=== PATIENT | male | born 1955 | race Caucasian/White ===

== ENCOUNTER 2021-03-20 12:30 | Outpatient (CLI) | payer OTHER ==
[2021-03-20 13:34] LABS: ALBUMIN 3.5 G/DL (3.4-5.0); ANION GAP 8 (8-16); BLOOD UREA NITROGEN 20 MG/DL (7-18); BUN/CREATININE RATIO 20.6 (5.4-32.0); CALCIUM 8.4 MG/DL (8.5-10.1); CHLORIDE 107 MMOL/L (99-107); CREATININE 0.97 MG/DL (0.60-1.10); GLUCOSE 113 MG/DL (70-104); SODIUM 142 MMOL/L (135-145); TOTAL CARBON DIOXIDE 26.6 MMOL/L (24-32); eGFR 78 ML/MIN
[2021-03-20 13:35] LABS: BASOPHILS % (AUTO) 0.5 % (0-1); EOSINOPHILS # (AUTO) 0.3 X10'3 (0-0.9); EOSINOPHILS % (AUTO) 3.6 % (0-6); HEMATOCRIT 50.3 % (42.0-52.0); HEMOGLOBIN 16.3 g/dl (14.0-17.9); LYMPHOCYTES % (AUTO) 26.8 % (21-51); MEAN CORPUSCULAR HEMOGLOBIN 31.2 PG (27.0-31.0); MEAN CORPUSCULAR HGB CONC 32.4 g/dL (33.0-36.5); MEAN CORPUSCULAR VOLUME 96.3 FL (78-98); MEAN PLATELET VOLUME 10.9 FL (7.4-10.4); MONOCYTES # (AUTO) 0.7 X10'3 (0-0.9); MONOCYTES % (AUTO) 9.4 % (2-12); NEUTROPHILS # (AUTO) 4.5 X10'3 (1.8-7.7); NEUTROPHILS % (AUTO) 59.7 % (42-75); PLATELET COUNT 142 X10'3 (140-440); RED BLOOD COUNT 5.22 X10'6 (4.70-6.10); RED CELL DISTRIBUTION WIDTH 14.4 % (11.5-14.5); WHITE BLOOD COUNT 7.5 X10'3 (4.5-11.0)
[2021-03-20 13:39] LABS: PARTIAL THROMBOPLASTIN TIME 27 SECONDS (22-32)
== END 2021-03-20 23:59 | disposition home or self-care (01) ==
LOC: LAB 12:30 → EDSTATUS 03-25 18:30
PROVIDERS: ATTEND Internal Medicine Interventional Cardiology
DX: Z01.810 Encounter for preprocedural cardiovascular examination (principal); Z79.01 Long term (current) use of anticoagulants
CPT/HCPCS: 36415; 80048; 85025; 85610; 85730

== ENCOUNTER 2022-12-15 11:55 | Day surgery (SDC) | payer BC, MEDICARE ==
[2022-12-11 12:11] LABS: BASOPHILS % (AUTO) 0.4 % (0-1); EOSINOPHILS # (AUTO) 0.3 X10'3 (0-0.9); EOSINOPHILS % (AUTO) 3.3 % (0-6); HEMATOCRIT 54.1 % (42.0-52.0); LYMPHOCYTES # (AUTO) 2.6 X10'3 (1.1-4.8); LYMPHOCYTES % (AUTO) 29.9 % (21-51); MEAN CORPUSCULAR HEMOGLOBIN 33.5 PG (27.0-31.0); MEAN CORPUSCULAR HGB CONC 33.6 g/dL (33.0-36.5); MEAN CORPUSCULAR VOLUME 99.8 FL (78-98); MEAN PLATELET VOLUME 10.1 FL (7.4-10.4); MONOCYTES # (AUTO) 0.6 X10'3 (0-0.9); MONOCYTES % (AUTO) 7.2 % (2-12); NEUTROPHILS # (AUTO) 5.2 X10'3 (1.8-7.7); NEUTROPHILS % (AUTO) 59.2 % (42-75); PLATELET COUNT 141 X10'3 (140-440); RED BLOOD COUNT 5.43 X10'6 (4.70-6.10); RED CELL DISTRIBUTION WIDTH 12.5 % (11.5-14.5); WHITE BLOOD COUNT 8.7 X10'3 (4.5-11.0)
[2022-12-11 12:20] LABS: HEMOGLOBIN 18.2 g/dl (14.0-17.9)
[2022-12-11 12:21] LABS: APTT 28 SECONDS (22-32)
[2022-12-11 12:29] LABS: ANION GAP 9 (8-16); BLOOD UREA NITROGEN 16 MG/DL (7-18); BUN/CREATININE RATIO 14.2 (10.0-20.0); CHLORIDE 104 MMOL/L (99-107); CHOL/HDL RATIO 3.8 (0.00-4.99); CHOLESTEROL 192 MG/DL (0-200); CREATININE 1.13 MG/DL (0.60-1.10); GLUCOSE 117 MG/DL (70-104); HDL CHOLESTEROL 51 MG/DL (35-60); LDL CHOLESTEROL 121 MG/DL (50-100); POTASSIUM 4.5 MMOL/L (3.5-5.1); SODIUM 142 MMOL/L (135-145); TOTAL CARBON DIOXIDE 29.3 MMOL/L (24-32); TRIGLYCERIDES 136 MG/DL (20-135); eGFR 65 ML/MIN
[~2022-12-15] VITALS: Ht 170.2 cm; Wt 88.5 kg
[2022-12-15] VITALS (9 sets, daily range): BP systolic 98–129; BP diastolic 59–115
[2022-12-15] MEDS ORDERED: LORazepam 0.5 MG tablet PO PRN (12:15)
[2022-12-15] MEDS ORDERED: normal saline 1,000 ML IV SCH (12:15)
[2022-12-15] MEDS ORDERED: diphenhydrAMINE 25mg capsule PO PRN (12:15)
[2022-12-15] MEDS ORDERED: SPIR25TA5 PO (13:51)
[2022-12-15] MEDS ORDERED: SACU1TAB7 PO (13:51)
[2022-12-15] MEDS ORDERED: BISO5TAB29 PO (13:51)
[2022-12-15] MEDS ORDERED: EMPA10TA PO (13:51)
[2022-12-15] MEDS ORDERED: verapamil 2.5 mg/ml inj IV ONE (14:12)
[2022-12-15] MEDS ORDERED: LIDOcaine 1% (10mg/ml) 2ml vial ONE (14:12)
[2022-12-15] MEDS ORDERED: iohexol 350MG/ML 100ml bottle IV ONE (14:13)
[2022-12-15] MEDS ORDERED: fentaNYL/PF 50MCG/1 ML 2ML syringe ONE (14:13)
[2022-12-15] MEDS ORDERED: heparin 1,000unit/ml 10ml vial 10 ML ONE (14:13)
[2022-12-15] MEDS ORDERED: nitroGLYCERIN-Tridil 50MG/D5W 250 ML IV ONE (14:13)
[2022-12-15] MEDS ORDERED: midazolam 1 mg/ML 2ml injection ONE (14:13)
[2022-12-15] MEDS ORDERED: proCHLORperazine 10 MG/2 ml inj ONE (14:42)
[2022-12-15] MEDS ORDERED: iohexol 350 MG/ML 50ML vial IV ONE (14:56)
[2022-12-15] MEDS ORDERED: HYDROcodone/acetaminophen 10/325mg tab PO PRN (15:45)
[2022-12-15] MEDS ORDERED: HYDROcodone/acetaminophen 5mg/325mg tablet PO PRN (15:45)
[2022-12-15] MEDS ORDERED: proCHLORperazine 10 MG/2 ml inj IV PRN (15:45)
[2022-12-15] MEDS ORDERED: OXAZEpam 15mg capsule PO PRN (15:45)
[2022-12-15] MEDS ORDERED: ondansetron/PF 4mg/2ml inj IV PRN (15:45)
== END 2022-12-15 18:10 | disposition home or self-care (01) ==
LOC: SSTAY O 11:55
PROVIDERS: ATTEND Student in an Organized Health Care Education/Training Program
DX: I42.0 Dilated cardiomyopathy (principal); I25.10 Atherosclerotic heart disease of native coronary artery without angina pectoris; I11.0 Hypertensive heart disease with heart failure; I50.9 Heart failure, unspecified; E78.5 Hyperlipidemia, unspecified; M10.9 Gout, unspecified; F41.8 Other specified anxiety disorders; M48.061 Spinal stenosis, lumbar region without neurogenic claudication; Z79.899 Other long term (current) drug therapy
CPT/HCPCS: 36415; 80048; 80061; 85025; 85610; 85730; 93005; 93458; 99152; A6258; J0780; J1644; J2250; J3010; J3490; J7030; Q0163; Q9967; 99153; A6402; C1894

== ENCOUNTER 2023-01-28 08:51 | Inpatient (IN) | payer BC, MEDICARE ==
[2023-01-27 13:51] LABS: ABG BASE EXCESS 0.2 mmol/L (-2.0-2.0); ABG HCO3 22.8 mmol/L (22.0-26.0); ABG OXYGEN SATURATION 95.7 % (94-97); ABG PCO2 (T) 32.7 mmHg (35.0-48.0); ABG PH (T) 7.462 (7.340-7.440); ALLEN'S TEST POSITIVE; FCOHb 0.3 % (0.0-3.9); FHHb 4.3 % (0.0-5.0); FMetHb 0.4 % (0.0-1.5); MODE ROOM AIR; TOTAL HEMOGLOBIN 19.2 G/dl (14.0-17.9)
[2023-01-27 14:41] LABS: BILIRUBIN,URINE NEGATIVE (Neg); CLARITY,URINE CLEAR (Clear); COLOR,URINE YELLOW (Yellow); GLUCOSE, URINE 500 mg/dl (Neg); KETONES,URINE NEGATIVE (Neg); LEUKOCYTE ESTERASE ,URINE NEGATIVE (Neg); NITRITES, URINE NEGATIVE (Neg); OCCULT BLOOD,URINE NEGATIVE (Neg); PROTEIN,URINE NEGATIVE (Neg); UA COLLECTION TYPE VOIDED; UROBILINOGEN,URINE 0.2 E.U/dL (0.2-1.0)
[2023-01-27 14:47] LABS: BASOPHILS % (AUTO) 0.1 % (0-1); EOSINOPHILS # (AUTO) 0.1 X10'3 (0-0.9); EOSINOPHILS % (AUTO) 1.1 % (0-6); LYMPHOCYTES # (AUTO) 1.2 X10'3 (1.1-4.8); LYMPHOCYTES % (AUTO) 13.6 % (21-51); MEAN CORPUSCULAR HEMOGLOBIN 34.2 PG (27.0-31.0); MEAN CORPUSCULAR HGB CONC 34.3 g/dL (33.0-36.5); MEAN CORPUSCULAR VOLUME 99.9 FL (78-98); MEAN PLATELET VOLUME 9.7 FL (7.4-10.4); MONOCYTES # (AUTO) 0.6 X10'3 (0-0.9); MONOCYTES % (AUTO) 7.3 % (2-12); NEUTROPHILS # (AUTO) 6.8 X10'3 (1.8-7.7); NEUTROPHILS % (AUTO) 77.9 % (42-75); PRE OP HEMATOCRIT 51.5 % (42.0-52.0); PRE OP HEMOGLOBIN 17.7 g/dL (14.0-17.9); PRE OP PLATELET COUNT 146 X10'3 (140-440); PRE OP WHITE BLOOD COUNT 8.7 10'3 (4.8-10.8); RED BLOOD COUNT 5.16 X10'6 (4.70-6.10); RED CELL DISTRIBUTION WIDTH 13.4 % (11.5-14.5)
[2023-01-27 15:03] LABS: ALBUMIN/GLOBULIN RATIO 1.2 (1.1-1.5); ALKALINE PHOSPHATASE 71 IU/L (46-116); BLOOD UREA NITROGEN 20 MG/DL (7-18); BUN/CREATININE RATIO 23.8 (10.0-20.0); CALCIUM 9.3 MG/DL (8.5-10.1); CHLORIDE 104 MMOL/L (99-107); CREATININE 0.84 MG/DL (0.60-1.10); PRE OP ALT 49 U/L (30-65); PRE OP ANION GAP 9 (8-16); PRE OP AST 38 U/L (10-37); PRE OP BILIRUB, TOTAL 1.9 MG/DL (0.0-1.0); PRE OP GLUCOSE 125 MG/DL (70-104); PRE OP POTASSIUM 3.9 MMOL/L (3.4-5.1); PRE OP SODIUM 138 MMOL/L (135-145); TOTAL CARBON DIOXIDE 24.9 MMOL/L (24-32); TOTAL PROTEIN 7.3 G/DL (6.4-8.2); eCRCL 89 ML/MIN; eGFR > 90 ML/MIN
[2023-01-27 15:19] LABS: HEMOGLOBIN A1C 5.4 % (4.5-6.2)
[2023-01-27 15:27] LABS: PRE OP PROTIME 10.6 SECONDS (9.0-12.0)
[2023-01-28] VITALS (11 sets, daily range): BP systolic 85–119; BP diastolic 52–77; PULSE 55–97; RESP 16–20; TEMP 98.3; O2SAT 96–98
[~2023-01-28] VITALS: Ht 177.8 cm; Wt 86.7 kg
[2023-01-28] MEDS: metoprolol tartrate 12.5mg (1/2 tablet) PO ONE ×2 (05:30→13:04)
[~2023-01-28 08:51] MED LIST: ASPI81TA52 PO; BISO5TAB29 PO; DOCUMENT DATE & TIME OF BETA-BLOCKER PO ONE; EMPA10TA PO; Insulin Reg/NS 100units/100mL 100 ML IV SCH; LIDOcaine 2% (20 mg/ml) 5ml cardiac syringe ONE; LORazepam 2 mg/ml vial IV ONE; MAGNESIUM SULFATE 4 MEQ/ML (5gm/10ml) injection ONE; NORepinephrine 1 mg/ml inj IV ONE; ROSU40TA PO; SACU1TAB7 PO; SPIR25TA5 PO; albumin (human) 25% 100 ML IV solution IV ONE; albuterol 2.5 MG/3 ML nebule NEB PRN; aminocaproic acid 250 MG/1 ML inj. ONE; calcium chloride 100 MG/1 ML inj IV ONE; cefazolin 2gm/D5W 100mL 100 ML IV ONE; dextrose 50%-water 50ml dispensing syringe IV PRN; famotidine 20mg tablet PO ONE; heparin 1,000 units/ml 10ml inj ONE; heparin 10,000 units/1 ML INJ ONE; mannitol 12.5gm/50mL VIAL IV ONE; methylPREDNISolone sod succ 1000mg vial ONE; mupirocin 2% nasal ointment 1gm UD NS ONE; ringers solution, lacted 1,000 ML IV SCH; sodium bicarbonate (8.4%) 1 mEq/ml syringe ONE; vancomycin 1,500 MG in NS 300ml IV soln IV ONE
[2023-01-28] MEDS ORDERED: vancomycin 1,000mg inj ONE ×2 (12:21→16:56)
[2023-01-28] MEDS ORDERED: ceFAZolin 1000mg inj ONE (12:21)
[2023-01-28] MEDS ORDERED: BUPIVAcaine/PF 2.5 mg/ml (0.25%) 30ml vial ONE (12:21)
[2023-01-28] MEDS ORDERED: epiNEPHrine 1 mg/ml inj ONE (12:21)
--- NOTE | 2023-01-28 14:00 | NUR ---
PER LAINE KOCH, DO NOT GIVE 12.5 METOPROLOL D/T HR 55-57.
[2023-01-28] MEDS ORDERED: MIDAZolam 1 MG/ML 5ML VIAL ONE (14:07)
[2023-01-28] MEDS ORDERED: SUfentanil 50mcg/ml 1ml amp IV ONE (14:08)
[2023-01-28] MEDS ORDERED: propofol inj 20 ML IV ONE (14:09)
[2023-01-28] MEDS ORDERED: rocuronium 10mg/ml inj IV ONE ×2 (14:10)
[2023-01-28] MEDS ORDERED: ePHEDrine 50MG/ML INJ. ONE (14:12)
[2023-01-28] MEDS ORDERED: protamine sulf. 10mg/ml inj. IV ONE (14:12)
[2023-01-28] MEDS ORDERED: sevoflurane 250ml liquid IH ONE (14:12)
[2023-01-28 15:00] LABS: ABG BASE EXCESS -3.1 mmol/L (-2.0-2.0); ABG OXYGEN SATURATION 98.4 % (94-97); ABG PCO2 35.4 mmHg (35.0-48.0); ABG PH 7.392 (7.340-7.440); ABG PO2 113.9 mmHg (75.0-100.0); CL (ABG) 105 mmol/L (99-107); FHHb 1.6 % (0.0-5.0); FMetHb 0.3 % (0.0-1.5); FO2Hb 97.1 % (94-97); GLUCOSE (ABG) 102 mg/dl (70-104); IONIZED CA (ABG) 1.15 mmol/L (1.10-1.30); K (ABG) 3.8 mmol/L (3.5-5.1); TOTAL HEMOGLOBIN 16.3 G/dl (14.0-17.9)
[2023-01-28 15:51] LABS: ABG HCO3 20.9 mmol/L (22.0-26.0); ABG OXYGEN SATURATION 99.5 % (94-97); ABG PCO2 33.2 mmHg (35.0-48.0); ABG PH 7.416 (7.340-7.440); ABG PO2 431.6 mmHg (75.0-100.0); CL (ABG) 102 mmol/L (99-107); FHHb 0.5 % (0.0-5.0); FMetHb 0.3 % (0.0-1.5); FO2Hb 99.2 % (94-97); GLUCOSE (ABG) 98 mg/dl (70-104); TOTAL HEMOGLOBIN 11.3 G/dl (14.0-17.9)
[2023-01-28 16:04] LABS: ABG BASE EXCESS VENOUS 0.2 mmol/L (-2.0 - 2.0); ABG HCO3 VENOUS 25.3 mmol/L (21.0-28.0); ABG OXYGEN SATURATION VENOUS 84.1 % (75 - 99 %); ABG PH (VENOUS) 7.388 (7.310-7.450); ABG PO2 VENOUS 47.4 mmHg (25.0-35.0); CL (ABG) 103 mmol/L (99-107); FCOHb VENOUS 0.5 %; FHHb VENOUS 15.8 %; FMetHb VENOUS 0.3 % (0.0 - 0.5); FO2Hb VENOUS 83.4 %; GLUCOSE (ABG) 106 mg/dl (70-104); IONIZED CA (ABG) 0.97 mmol/L (1.10-1.30); TOTAL HEMOGLOBIN 11.6 G/dl (14.0-17.9)
[2023-01-28 16:33] LABS: ABG BASE EXCESS -4.2 mmol/L (-2.0-2.0); ABG HCO3 20.1 mmol/L (22.0-26.0); ABG OXYGEN SATURATION 99.6 % (94-97); ABG PCO2 34.2 mmHg (35.0-48.0); ABG PH 7.387 (7.340-7.440); ABG PO2 361.9 mmHg (75.0-100.0); CL (ABG) 103 mmol/L (99-107); FCOHb 0.6 % (0.0-3.9); FHHb 0.4 % (0.0-5.0); FMetHb 0.3 % (0.0-1.5); FO2Hb 98.7 % (94-97); GLUCOSE (ABG) 110 mg/dl (70-104); IONIZED CA (ABG) 1.32 mmol/L (1.10-1.30); TOTAL HEMOGLOBIN 11.9 G/dl (14.0-17.9)
[2023-01-28 16:55] LABS: ABG BASE EXCESS -2.7 mmol/L (-2.0-2.0); ABG HCO3 22.2 mmol/L (22.0-26.0); ABG OXYGEN SATURATION 83.5 % (94-97); ABG PCO2 39.1 mmHg (35.0-48.0); ABG PH 7.372 (7.340-7.440); CL (ABG) 103 mmol/L (99-107); FHHb 16.3 % (0.0-5.0); FMetHb 0.3 % (0.0-1.5); FO2Hb 82.4 % (94-97); GLUCOSE (ABG) 101 mg/dl (70-104); IONIZED CA (ABG) 1.15 mmol/L (1.10-1.30); K (ABG) 3.9 mmol/L (3.5-5.1); TOTAL HEMOGLOBIN 12.2 G/dl (14.0-17.9)
[2023-01-28] MEDS ORDERED: magnesium hydroxide 30ml (MOM) UD suspension PO PRN (17:55)
[2023-01-28] MEDS ORDERED: ondansetron/PF 4mg/2ml inj IV PRN (17:55)
[2023-01-28] MEDS ORDERED: potassium Cl 40MEQ/1/2NS 520ml 520 ML IV PRN (17:55)
[2023-01-28] MEDS ORDERED: acetaminophen 325mg tablet PO PRN ×2 (17:55)
[2023-01-28] MEDS ORDERED: mineral oil 133ml enema RC PRN (17:55)
[2023-01-28] MEDS ORDERED: HYDROcodone/acetaminophen 10/325mg tab PO PRN (17:55)
[2023-01-28] MEDS ORDERED: metoclopramide 5 mg/ml inj IV PRN (17:55)
[2023-01-28] MEDS ORDERED: magnesium 4gm in 100ml NS 100 ML IV PRN (17:55)
[2023-01-28] MEDS ORDERED: magnesium 2GM in 50ml NS 50 ML IV PRN (17:55)
[2023-01-28] MEDS ORDERED: potassium CL 10mEq/100ml bag 100 ML IV PRN (17:55)
[2023-01-28] MEDS ORDERED: sodium phosphate inj. 30 MMOL in dextrose 5%-water 250 ML IV PRN (17:55)
[2023-01-28] MEDS ORDERED: potassium Cl 40MEQ/270ML bag 270 ML IV PRN (17:55)
[2023-01-28] MEDS ORDERED: sodium phosphate inj. 15 MMOL in dextrose 5%-water 250 ML IV PRN (17:55)
[2023-01-28] MEDS ORDERED: potassium Cl 20 mEq SR tablet PO PRN (17:55)
[2023-01-28] MEDS ORDERED: dextrose 50%-water 50ml dispensing syringe IV PRN (17:55)
[2023-01-28] MEDS ORDERED: morphine 4 MG/ML inj SYRINge IV PRN (17:55)
[2023-01-28] MEDS: sodium chloride 0.45% 1,000 ML IV SCH (17:55)
[2023-01-28] MEDS ORDERED: bisacodyl 10mg suppository rectal RC PRN (17:55)
[2023-01-28] MEDS ORDERED: Neutra Phos packet PO PRN (17:55)
[2023-01-28] MEDS: NORepinephrine 8mg/ 250ml NS 250 ML IV PRN (18:00)
[2023-01-28 18:07] LABS: BASOPHILS % (AUTO) 0.2 % (0-1); EOSINOPHILS # (AUTO) 0.2 X10'3 (0-0.9); EOSINOPHILS % (AUTO) 0.9 % (0-6); HEMATOCRIT 48.4 % (42.0-52.0); HEMOGLOBIN 16.4 g/dl (14.0-17.9); LYMPHOCYTES # (AUTO) 1.8 X10'3 (1.1-4.8); LYMPHOCYTES % (AUTO) 10.5 % (21-51); MEAN CORPUSCULAR HEMOGLOBIN 33.9 PG (27.0-31.0); MEAN CORPUSCULAR HGB CONC 33.9 g/dL (33.0-36.5); MEAN PLATELET VOLUME 9.9 FL (7.4-10.4); NEUTROPHILS # (AUTO) 14.4 X10'3 (1.8-7.7); NEUTROPHILS % (AUTO) 82.4 % (42-75); PLATELET COUNT 107 X10'3 (140-440); RED BLOOD COUNT 4.84 X10'6 (4.70-6.10); RED CELL DISTRIBUTION WIDTH 13.4 % (11.5-14.5); WHITE BLOOD COUNT 17.5 X10'3 (4.5-11.0)
[2023-01-28 18:10] LABS: ABG BASE EXCESS -3.3 mmol/L (-2.0-2.0); ABG HCO3 21.1 mmol/L (22.0-26.0); ABG OXYGEN SATURATION 99.2 % (94-97); ABG PH (T) 7.383 (7.340-7.440); ABG PO2 (T) 208.2 mmHg (75.0-100.0); FCOHb 0.2 % (0.0-3.9); FHHb 0.8 % (0.0-5.0); FMetHb 0.5 % (0.0-1.5); FO2Hb 98.5 % (94-97); MODE VENT - SIMV; PATIENT TEMPERATURE 36.7; PEEP 5 cm H2O; RESPIRATORY RATE 12 b/min; TIDAL VOLUME 500 mL
--- NOTE | 2023-01-28 18:17 | NUR ---
Pt. to room from [facility] at approx 1745. Hooked up to monitor. CXR obtained and reviewed by anesthesiologist. Vamp applied to arterial line and labs drawn. CO/CI obtained and noted by anesthesiologist. Chest tubes to wall suction. ABG drawn and reviewed. EKG being obtained now. BG WNL. VSS. Foam dressing applied to sacrum, wrist restraints applied. FI02 decreased to 60%. NOC KARLA Judge at bedside to assume care.
[2023-01-28 18:26] LABS: ALANINE AMINOTRANSFERASE 35 U/L (12-78); ALBUMIN/GLOBULIN RATIO 1.4 (1.1-1.5); ALKALINE PHOSPHATASE 39 IU/L (46-116); ANION GAP 17 (8-16); ASPARTATE AMINO TRANSFERASE 41 U/L (10-37); BILIRUBIN,TOTAL 1.7 MG/DL (0.1-1.0); BLOOD UREA NITROGEN 16 MG/DL (7-18); CALCIUM 8.9 MG/DL (8.5-10.1); CHLORIDE 105 MMOL/L (99-107); GLUCOSE 119 MG/DL (70-104); MAGNESIUM 2.6 MG/DL (1.5-2.4); PHOSPHORUS 3.2 MG/DL (2.3-4.5); SODIUM 144 MMOL/L (135-145); TOTAL CARBON DIOXIDE 21.9 MMOL/L (24-32); TOTAL PROTEIN 5.2 G/DL (6.4-8.2); eCRCL 94 ML/MIN; eGFR > 90 ML/MIN
--- NOTE | 2023-01-28 18:30 | NUR ---
Patient in room CICU 2014. I have received report from Paty ACOSTA and had the opportunity to ask questions and assume patient care. Monitor known to have hyperdynamic cardiac outputs, surgeon aware, told to half the calculated numbers and use as a trend.
[2023-01-28] MEDS ORDERED: niCARDipine-NS 40mg/200ml IVPB 200 ML IV PRN (18:34)
[2023-01-28] MEDS: albumin (Human) 5% 250ml 250 ML IV PRN ×3 (18:34→22:28)
[2023-01-28] MEDS ORDERED: nitroGLYCERIN-Tridil 50MG/D5W 250 ML IV SCH (18:36)
[2023-01-28 19:05] LABS: APTT 28 SECONDS (22-32); INR 1.2 INR; PROTHROMBIN TIME 12.4 SECONDS (9.0-12.0)
[2023-01-28] MEDS: potassium Cl 20mEq/100mL bag 100 ML IV PRN ×2 (19:10→20:25)
[2023-01-28] MEDS: sennosides/docusate sodium tablet PO SCH (20:00)
[2023-01-28] MEDS: atorvastatin 10mg tablet PO SCH (20:25)
[2023-01-28] MEDS: mupirocin 2% nasal ointment 1gm UD NS SCH (20:26)
--- NOTE | 2023-01-28 20:50 | NUR ---
Arterial line dampened, using cuff pressures now.
[2023-01-28] MEDS: vancomycin/NS 1 GM ADD-VANTAGE 250 ML IV SCH (20:54)
[2023-01-28] MEDS: morphine 2 MG/ML inj. syringe IV PRN (21:56)
--- NOTE | 2023-01-28 23:20 | NUR ---
Pt with BP drop after HR dropped into 50s during a coughing fit. Backup pacer turned on at rate of 80bpm with 100%capture. BP increased with increased HR. Pt awake, Vent on SBT mode.
[2023-01-28] MEDS: ceFAZolin/D5W- 1GM premix 50 ML IV SCH (23:41)
--- NOTE | 2023-01-28 23:41 | NUR ---
Pacemaker back on standby mode.
[2023-01-28 23:43] LABS: ABG BASE EXCESS -11.8 mmol/L (-2.0-2.0); ABG HCO3 12.6 mmol/L (22.0-26.0); ABG OXYGEN SATURATION 97.6 % (94-97); ABG PCO2 (T) 25.9 mmHg (35.0-48.0); ABG PH (T) 7.305 (7.340-7.440); ABG PO2 (T) 109.4 mmHg (75.0-100.0); FCOHb 0.4 % (0.0-3.9); FHHb 2.4 % (0.0-5.0); FMetHb 0.4 % (0.0-1.5); FO2Hb 96.8 % (94-97); MODE VENT - CPAP; PATIENT TEMPERATURE 37.3; TOTAL HEMOGLOBIN 14.7 G/dl (14.0-17.9)
[2023-01-28] MEDS ORDERED: sodium bicarbonate (8.4%) 1 mEq/ml syringe IV ONE (23:55)
[2023-01-28] MEDS ORDERED: albumin (Human) 5% 250ml 250 ML IV ONE (23:55)
[2023-01-28 23:58] LABS: ANION GAP 22 (8-16); BLOOD UREA NITROGEN 18 MG/DL (7-18); BUN/CREATININE RATIO 17.6 (10.0-20.0); CHLORIDE 109 MMOL/L (99-107); CREATININE 1.02 MG/DL (0.60-1.10); GLUCOSE 167 MG/DL (70-104); POTASSIUM 5.1 MMOL/L (3.5-5.1); SODIUM 146 MMOL/L (135-145)
[2023-01-28 23:59] LABS: ALBUMIN 3.6 G/DL (3.4-5.0); CALCIUM 7.9 MG/DL (8.5-10.1); MAGNESIUM 2.3 MG/DL (1.5-2.4); eCRCL 74 ML/MIN; eGFR 73 ML/MIN
[2023-01-29] VITALS (29 sets, daily range): BP systolic 56–125; BP diastolic 45–68; PULSE 71–98; RESP 11–28; O2SAT 94–98
[2023-01-29 00:04] LABS: BASOPHILS % (AUTO) 0.1 % (0-1); EOSINOPHILS % (AUTO) 0 % (0-6); HEMATOCRIT 40.4 % (42.0-52.0); HEMOGLOBIN 13.7 g/dl (14.0-17.9); LYMPHOCYTES # (AUTO) 0.5 X10'3 (1.1-4.8); LYMPHOCYTES % (AUTO) 2.9 % (21-51); MEAN CORPUSCULAR HEMOGLOBIN 34.2 PG (27.0-31.0); MEAN CORPUSCULAR HGB CONC 33.9 g/dL (33.0-36.5); MEAN PLATELET VOLUME 10.2 FL (7.4-10.4); MONOCYTES # (AUTO) 0.5 X10'3 (0-0.9); MONOCYTES % (AUTO) 2.8 % (2-12); NEUTROPHILS # (AUTO) 17.1 X10'3 (1.8-7.7); NEUTROPHILS % (AUTO) 94.2 % (42-75); PLATELET COUNT 123 X10'3 (140-440); RED CELL DISTRIBUTION WIDTH 13.2 % (11.5-14.5); WHITE BLOOD COUNT 18.1 X10'3 (4.5-11.0)
[2023-01-29] MEDS ORDERED: sodium bicarbonate (8.4%) inj. 1 MEQ/ML ML ONE (00:16)
--- NOTE | 2023-01-29 00:32 | NUR ---
Pt passed vent weaning except pH 7.305 with HCO3 12.6. Serum CO2 15. 1 Amp Bicarb and another Albumin ordered. Pt remains on Levophed, trying to wean off.
[2023-01-29] MEDS: Insulin Reg/NS 100units/100mL 100 ML IV SCH ×2 (01:12→10:28)
[2023-01-29] MEDS: morphine 2 MG/ML inj. syringe IV PRN (01:13)
--- NOTE | 2023-01-29 01:41 | NUR ---
Pt still having low blood pressures after the 4th Albumin. Dr Morgan notified again and ordered to turn Dobutamine on at 2mcg/kg/min and continue to try to wean levophed. He also wants pt extubated despite low pH on ABG.
--- NOTE | 2023-01-29 02:13 | NUR ---
Pt extubated to 3L NC at 0201.
[2023-01-29] MEDS ORDERED: DOBUTamine-DoBUTrex 500mg/D5W 250 ML IV SCH (02:25)
[2023-01-29 02:58] LABS: BASOPHILS % (AUTO) 0.1 % (0-1); EOSINOPHILS % (AUTO) 0 % (0-6); HEMATOCRIT 37.9 % (42.0-52.0); HEMOGLOBIN 12.9 g/dl (14.0-17.9); LYMPHOCYTES # (AUTO) 0.5 X10'3 (1.1-4.8); MEAN CORPUSCULAR HEMOGLOBIN 34.3 PG (27.0-31.0); MEAN CORPUSCULAR HGB CONC 33.9 g/dL (33.0-36.5); MEAN PLATELET VOLUME 10.1 FL (7.4-10.4); MONOCYTES # (AUTO) 0.2 X10'3 (0-0.9); MONOCYTES % (AUTO) 1.8 % (2-12); NEUTROPHILS # (AUTO) 11.1 X10'3 (1.8-7.7); NEUTROPHILS % (AUTO) 94.1 % (42-75); PLATELET COUNT 99 X10'3 (140-440); RED BLOOD COUNT 3.76 X10'6 (4.70-6.10); RED CELL DISTRIBUTION WIDTH 13.3 % (11.5-14.5); WHITE BLOOD COUNT 11.8 X10'3 (4.5-11.0)
[2023-01-29 03:22] LABS: ALANINE AMINOTRANSFERASE 30 U/L (12-78); ALBUMIN 3.6 G/DL (3.4-5.0); ALKALINE PHOSPHATASE 33 IU/L (46-116); ANION GAP 23 (8-16); ASPARTATE AMINO TRANSFERASE 32 U/L (10-37); BILIRUBIN,TOTAL 1.9 MG/DL (0.1-1.0); BLOOD UREA NITROGEN 19 MG/DL (7-18); BUN/CREATININE RATIO 16.7 (10.0-20.0); CHLORIDE 110 MMOL/L (99-107); CREATININE 1.14 MG/DL (0.60-1.10); GLUCOSE 172 MG/DL (70-104); POTASSIUM 4.4 MMOL/L (3.5-5.1); SODIUM 150 MMOL/L (135-145); TOTAL CARBON DIOXIDE 17.3 MMOL/L (24-32); TOTAL PROTEIN 5.4 G/DL (6.4-8.2); eCRCL 66 ML/MIN; eGFR 64 ML/MIN
--- NOTE | 2023-01-29 04:26 | NUR ---
Pt's BP still on low side, since monitor is reading hyperdynamic FloTrac was utilized to verify CO. Results called to Dr Morgan, labs ordered. No change in IV fluids or drips at this time.
[2023-01-29 04:47] LABS: AMYLASE 675 U/L (25-115)
[2023-01-29 05:22] LABS: ABG BASE EXCESS -5.9 mmol/L (-2.0-2.0); ABG OXYGEN SATURATION 96.2 % (94-97); ABG PH (T) 7.419 (7.340-7.440); ABG PO2 (T) 86.1 mmHg (75.0-100.0); FCOHb 0.3 % (0.0-3.9); FHHb 3.8 % (0.0-5.0); FLOW 3 L/min; FMetHb 0.4 % (0.0-1.5); FO2Hb 95.5 % (94-97); MODE NASAL CANNULA; PATIENT TEMPERATURE 37.3; TOTAL HEMOGLOBIN 13.3 G/dl (14.0-17.9)
--- NOTE | 2023-01-29 05:42 | NUR ---
Lab values reported back to Dr Morgan via telephone, no additional orders at this time.
--- NOTE | 2023-01-29 06:16 | NUR ---
Problems reprioritized. Patient report given, questions answered & plan of care reviewed with Ceasar ACOSTA.
--- NOTE | 2023-01-29 06:18 | NUR ---
Patient in room CICU 2014. I have received report from Alley ACOSTA and had the opportunity to ask questions and assume patient care.
[2023-01-29] MEDS: metoprolol tartrate 12.5mg (1/2 tablet) PO SCH ×2 (06:58→20:00)
[2023-01-29] MEDS: albumin (Human) 5% 250ml 250 ML IV PRN (07:09)
[2023-01-29 07:10] LABS: MAGNESIUM 2.8 MG/DL (1.5-2.4); PHOSPHORUS 3.6 MG/DL (2.3-4.5)
[2023-01-29] MEDS ORDERED: sodium chloride 0.45% 1,000 ML in sodium chloride 0.45% 1,000 ML IV ONE (07:55)
[2023-01-29] MEDS ORDERED: ringers solution, lacted 1,000 ML IV ONE (08:00)
[2023-01-29] MEDS ORDERED: dextrose 50%-water 50ml dispensing syringe IV PRN ×2 (08:45)
[2023-01-29] MEDS ORDERED: DEXTROSE 15 GM of carb/4 tabs (each vial/BOTTLE has 4 tablets) PO PRN ×2 (08:45)
[2023-01-29] MEDS: aspirin 81mg tab.chew PO SCH (08:53)
[2023-01-29] MEDS: mupirocin 2% nasal ointment 1gm UD NS SCH ×2 (08:53→20:39)
[2023-01-29] MEDS: sennosides/docusate sodium tablet PO SCH ×2 (08:53→20:39)
[2023-01-29] MEDS: ceFAZolin/D5W- 1GM premix 50 ML IV SCH ×2 (08:54→16:22)
[2023-01-29] MEDS: insulin glargine (Lantus) pen - multi-dose SQ PRN (09:24)
[2023-01-29] MEDS: insulin Lispro (HumaLOG) vial - multi-dose SQ SCH ×2 (09:42→14:06)
[2023-01-29] MEDS: vancomycin/NS 1 GM ADD-VANTAGE 250 ML IV SCH ×2 (09:43→22:10)
[2023-01-29] MEDS: HYDROcodone/acetaminophen 10/325mg tab PO PRN ×2 (10:27→14:59)
[2023-01-29] MEDS: NORepinephrine 8mg/ 250ml NS 250 ML IV PRN (12:05)
--- NOTE | 2023-01-29 12:05 | NUR ---
Nutrition consult: Per EMR pt POD #1 s/p CABG x 3, just extubated early this morning. Pt would benefit from post CABG nutrition therapy education as appropriate. Will continue to follow. Addendum: 01/29/23 at [address] Amended: Links added.
[2023-01-29 16:20] LABS: ALBUMIN 3.4 G/DL (3.4-5.0); ANION GAP 8 (8-16); BLOOD UREA NITROGEN 21 MG/DL (7-18); BUN/CREATININE RATIO 20.4 (10.0-20.0); CALCIUM 7.5 MG/DL (8.5-10.1); CHLORIDE 107 MMOL/L (99-107); CREATININE 1.03 MG/DL (0.60-1.10); GLUCOSE 145 MG/DL (70-104); MAGNESIUM 2.4 MG/DL (1.5-2.4); POTASSIUM 4.5 MMOL/L (3.5-5.1); SODIUM 138 MMOL/L (135-145); eCRCL 73 ML/MIN; eGFR 72 ML/MIN
--- NOTE | 2023-01-29 18:23 | NUR ---
Student documentation: I have reviewed and agree with all interventions, assessments performed and documented by Nneka ACOSTA.
--- NOTE | 2023-01-29 18:23 | NUR ---
Problems reprioritized. Patient report given, questions answered & plan of care reviewed with Earnestine ACOSTA.
[2023-01-29] MEDS: atorvastatin 10mg tablet PO SCH (20:39)
[2023-01-30] VITALS (17 sets, daily range): BP systolic 90–118; BP diastolic 48–91; PULSE 62–100; RESP 12–21; TEMP 98.1; O2SAT 92–96
[2023-01-30] MEDS: ceFAZolin/D5W- 1GM premix 50 ML IV SCH ×2 (00:28→07:25)
[2023-01-30 03:05] LABS: BASOPHILS % (AUTO) 0.1 % (0-1); EOSINOPHILS % (AUTO) 0 % (0-6); HEMATOCRIT 30.8 % (42.0-52.0); HEMOGLOBIN 10.5 g/dl (14.0-17.9); LYMPHOCYTES % (AUTO) 7.6 % (21-51); MEAN CORPUSCULAR HEMOGLOBIN 34.4 PG (27.0-31.0); MEAN CORPUSCULAR HGB CONC 34.1 g/dL (33.0-36.5); MEAN CORPUSCULAR VOLUME 100.8 FL (78-98); MEAN PLATELET VOLUME 10.2 FL (7.4-10.4); MONOCYTES # (AUTO) 1.4 X10'3 (0-0.9); MONOCYTES % (AUTO) 10.7 % (2-12); NEUTROPHILS # (AUTO) 10.5 X10'3 (1.8-7.7); NEUTROPHILS % (AUTO) 81.6 % (42-75); PLATELET COUNT 81 X10'3 (140-440); RED BLOOD COUNT 3.05 X10'6 (4.70-6.10); RED CELL DISTRIBUTION WIDTH 13.3 % (11.5-14.5); WHITE BLOOD COUNT 12.8 X10'3 (4.5-11.0)
[2023-01-30 03:23] LABS: ALBUMIN 3.1 G/DL (3.4-5.0); ANION GAP 8 (8-16); BLOOD UREA NITROGEN 19 MG/DL (7-18); BUN/CREATININE RATIO 21.1 (10.0-20.0); CALCIUM 8.1 MG/DL (8.5-10.1); CHLORIDE 108 MMOL/L (99-107); GLUCOSE 133 MG/DL (70-104); POTASSIUM 4.7 MMOL/L (3.5-5.1); SODIUM 139 MMOL/L (135-145); TOTAL CARBON DIOXIDE 23.4 MMOL/L (24-32); eCRCL 83 ML/MIN; eGFR 84 ML/MIN
[2023-01-30 05:31] LABS: PLATELET ESTIMATE DECREASED
[2023-01-30 05:37] LABS: LARGE PLATELETS FEW; MICROCYTOSIS 1+
--- NOTE | 2023-01-30 06:30 | NUR ---
Patient in room CICU 2015. I have received report from Earnestine ACOSTA and had the opportunity to ask questions and assume patient care. Report give to Agustin with opportunity to ask questions and assume patient care and I will follow pts care with her.
[2023-01-30] MEDS: metoprolol tartrate 12.5mg (1/2 tablet) PO SCH (07:11)
[2023-01-30] MEDS: aspirin 81mg tab.chew PO SCH (07:24)
[2023-01-30] MEDS: sennosides/docusate sodium tablet PO SCH ×2 (07:25→20:01)
[2023-01-30] MEDS: pantoprazole 40mg Tablet.DR PO SCH (07:25)
[2023-01-30] MEDS: mupirocin 2% nasal ointment 1gm UD NS SCH (07:25)
[2023-01-30] MEDS ORDERED: insulin glargine (Lantus) pen - multi-dose SQ SCH (09:00)
--- NOTE | 2023-01-30 09:45 | NUR ---
Dr. Maynard at bedside to dc chest tube. present.
[2023-01-30] MEDS: insulin glargine (Lantus) pen - multi-dose SQ PRN (09:47)
--- NOTE | 2023-01-30 13:00 | NUR ---
OOB Pt OOB to chair for Lunch, dozing off and on. Lunch provided and pt had no c/o pain at this time
[2023-01-30] MEDS: insulin Lispro (HumaLOG) vial - multi-dose SQ SCH (14:23)
--- NOTE | 2023-01-30 14:38 | NUR ---
Patient moved from room 2014 to 2012.
[2023-01-30] MEDS: sodium chloride 0.45% 1,000 ML IV SCH ×2 (17:00→18:00)
[2023-01-30] MEDS: ascorbic acid 500mg tablet PO SCH (17:32)
--- NOTE | 2023-01-30 18:22 | NUR ---
Problems reprioritized. Patient report given, questions answered & plan of care reviewed with Renetta ACOSTA.
--- NOTE | 2023-01-30 18:30 | NUR ---
Patient in room PCU 3010. I have received report from Danny ACOSTA and had the opportunity to ask questions and assume patient care.
[2023-01-30] MEDS: ferrous sulfate 325mg tablet PO SCH (20:01)
[2023-01-30] MEDS: potassium Cl 20 mEq SR tablet PO SCH (20:01)
[2023-01-30] MEDS: furosemide 20MG tablet PO SCH (20:02)
[2023-01-30] MEDS: atorvastatin 10mg tablet PO SCH (20:02)
--- NOTE | 2023-01-30 22:57 | NUR ---
Problems reprioritized. Patient report given, questions answered & plan of care reviewed with Soheila ACOSTA. Patient transferred to 3010 all belongings.
[2023-01-30] MEDS: HYDROcodone/acetaminophen 10/325mg tab PO PRN (23:21)
--- NOTE | 2023-01-30 23:32 | NUR ---
Received patient transfer from ICU in wheelchair. Patient assisted to ambulated to bed without any difficulty. VSS, patient is afebrile. Incentive spirometer and flutter valve teaching re-inforced as well as sternal precautions. Sternal dressing dry and intact. Patient given pain medication. Resting comfortably in bed. SR up x2, bll, call shelton in reach.
[2023-01-31] VITALS (8 sets, daily range): BP systolic 97–136; BP diastolic 60–87; PULSE 60–89; RESP 16–38; TEMP 97.7–98.9; O2SAT 95–99
[2023-01-31] MEDS: potassium Cl 20 mEq SR tablet PO SCH ×2 (08:00→21:13)
[2023-01-31] MEDS ORDERED: metoprolol succinate 25mg (24-HOUR) SR. Tablet PO SCH (08:00)
[2023-01-31 08:06] LABS: BASOPHILS % (AUTO) 0.1 % (0-1); EOSINOPHILS % (AUTO) 0.2 % (0-6); HEMATOCRIT 33.3 % (42.0-52.0); HEMOGLOBIN 11.4 g/dl (14.0-17.9); LYMPHOCYTES # (AUTO) 1.3 X10'3 (1.1-4.8); LYMPHOCYTES % (AUTO) 12.2 % (21-51); MEAN CORPUSCULAR HEMOGLOBIN 34.7 PG (27.0-31.0); MEAN CORPUSCULAR HGB CONC 34.3 g/dL (33.0-36.5); MEAN CORPUSCULAR VOLUME 101.3 FL (78-98); MEAN PLATELET VOLUME 10.2 FL (7.4-10.4); MONOCYTES # (AUTO) 1.1 X10'3 (0-0.9); MONOCYTES % (AUTO) 9.9 % (2-12); NEUTROPHILS # (AUTO) 8.4 X10'3 (1.8-7.7); NEUTROPHILS % (AUTO) 77.6 % (42-75); PLATELET COUNT 84 X10'3 (140-440); RED BLOOD COUNT 3.29 X10'6 (4.70-6.10); RED CELL DISTRIBUTION WIDTH 13.4 % (11.5-14.5); WHITE BLOOD COUNT 10.9 X10'3 (4.5-11.0)
[2023-01-31] MEDS ORDERED: insulin glargine (Lantus) pen - multi-dose SQ SCH (09:00)
[2023-01-31 09:12] LABS: ALBUMIN 3.2 G/DL (3.4-5.0); ANION GAP 8 (8-16); BLOOD UREA NITROGEN 19 MG/DL (7-18); BUN/CREATININE RATIO 21.6 (10.0-20.0); CALCIUM 8.5 MG/DL (8.5-10.1); CHLORIDE 104 MMOL/L (99-107); CREATININE 0.88 MG/DL (0.60-1.10); GLUCOSE 98 MG/DL (70-104); POTASSIUM 4.5 MMOL/L (3.5-5.1); SODIUM 140 MMOL/L (135-145); TOTAL CARBON DIOXIDE 28.3 MMOL/L (24-32); eCRCL 85 ML/MIN; eGFR 87 ML/MIN
[2023-01-31] MEDS: insulin Lispro (HumaLOG) vial - multi-dose SQ SCH (09:24)
[2023-01-31] MEDS: multivitamins, therapeutics tablet PO SCH (09:27)
[2023-01-31] MEDS: ferrous sulfate 325mg tablet PO SCH ×2 (09:27→21:12)
[2023-01-31] MEDS: metoprolol succinate 25mg (24-HOUR) SR. Tablet PO SCH (09:29)
[2023-01-31] MEDS: sennosides/docusate sodium tablet PO SCH ×2 (09:29→21:12)
[2023-01-31] MEDS: furosemide 20MG tablet PO SCH ×2 (09:29→21:13)
[2023-01-31] MEDS: folic acid 1mg tablet PO SCH (09:29)
[2023-01-31] MEDS: pantoprazole 40mg Tablet.DR PO SCH (09:29)
[2023-01-31] MEDS: zinc sulfate 220mg capsule PO SCH (09:29)
[2023-01-31] MEDS: aspirin 81mg tab.chew PO SCH (09:30)
[2023-01-31] MEDS: ascorbic acid 500mg tablet PO SCH ×2 (09:30→17:59)
--- NOTE | 2023-01-31 16:59 | NUR ---
F/u 01/31: Pt seen by MILES for written/verbal high protein/heart healthy diet eds w/ RD contact information provided. Pt is agreeable to shanita LAWRENCE for wound healing; notified. MILES encouraged pt to contact dietitian's office if further nutrition questions/concerns. Rec: 1. continue NCS diet per MD 2. Shanita LAWRENCE; pending physician verification in EMR Addendum: 01/31/23 at [address] Amended: Links added.
[2023-01-31] MEDS: JUVEN Smoothie Arginine/Glut./Ca2+Bmb (Juven 19.3pkt) 240ml cup PO SCH (17:30)
[2023-01-31] MEDS: insulin glargine (Lantus) pen - multi-dose SQ SCH (21:00)
[2023-01-31] MEDS: atorvastatin 10mg tablet PO SCH (21:12)
[2023-01-31] MEDS: HYDROcodone/acetaminophen 10/325mg tab PO PRN (21:13)
[2023-02-01] VITALS (8 sets, daily range): BP systolic 114–129; BP diastolic 68–85; PULSE 84–106; RESP 15–24; TEMP 97.5–99.6; O2SAT 94–95
[2023-02-01 06:19] LABS: BASOPHILS % (AUTO) 0.1 % (0-1); EOSINOPHILS # (AUTO) 0.1 X10'3 (0-0.9); EOSINOPHILS % (AUTO) 1.2 % (0-6); HEMATOCRIT 33.9 % (42.0-52.0); HEMOGLOBIN 11.7 g/dl (14.0-17.9); LYMPHOCYTES % (AUTO) 16.4 % (21-51); MEAN CORPUSCULAR HEMOGLOBIN 34.6 PG (27.0-31.0); MEAN CORPUSCULAR HGB CONC 34.4 g/dL (33.0-36.5); MEAN CORPUSCULAR VOLUME 100.6 FL (78-98); MEAN PLATELET VOLUME 10.2 FL (7.4-10.4); MONOCYTES # (AUTO) 1.3 X10'3 (0-0.9); MONOCYTES % (AUTO) 10.6 % (2-12); NEUTROPHILS # (AUTO) 8.7 X10'3 (1.8-7.7); NEUTROPHILS % (AUTO) 71.7 % (42-75); PLATELET COUNT 108 X10'3 (140-440); RED BLOOD COUNT 3.37 X10'6 (4.70-6.10); WHITE BLOOD COUNT 12.1 X10'3 (4.5-11.0)
--- NOTE | 2023-02-01 06:25 | NUR ---
Problems reprioritized. Patient report given, questions answered & plan of care reviewed with Aguila
--- NOTE | 2023-02-01 06:26 | NUR ---
Patient in room PCU 3010. I have received report from Alexandra and had the opportunity to ask questions and assume patient care. Addendum: 02/01/23 at 0627 by Aguila West RN Amended: Links added.
[2023-02-01 06:40] LABS: ALBUMIN 3.2 G/DL (3.4-5.0); ANION GAP 6 (8-16); BLOOD UREA NITROGEN 21 MG/DL (7-18); BUN/CREATININE RATIO 22.8 (10.0-20.0); CHLORIDE 103 MMOL/L (99-107); CREATININE 0.92 MG/DL (0.60-1.10); GLUCOSE 103 MG/DL (70-104); POTASSIUM 4.2 MMOL/L (3.5-5.1); SODIUM 138 MMOL/L (135-145); TOTAL CARBON DIOXIDE 29.3 MMOL/L (24-32); eCRCL 82 ML/MIN; eGFR 82 ML/MIN
[2023-02-01] MEDS: potassium Cl 20 mEq SR tablet PO SCH ×2 (07:15→20:20)
[2023-02-01] MEDS: zinc sulfate 220mg capsule PO SCH (07:15)
[2023-02-01] MEDS: pantoprazole 40mg Tablet.DR PO SCH (07:15)
[2023-02-01] MEDS: multivitamins, therapeutics tablet PO SCH (07:15)
[2023-02-01] MEDS: ferrous sulfate 325mg tablet PO SCH ×2 (07:16→20:21)
[2023-02-01] MEDS: metoprolol succinate 25mg (24-HOUR) SR. Tablet PO SCH (07:16)
[2023-02-01] MEDS: folic acid 1mg tablet PO SCH (07:16)
[2023-02-01] MEDS: sennosides/docusate sodium tablet PO SCH ×2 (07:16→20:00)
[2023-02-01] MEDS: furosemide 20MG tablet PO SCH ×2 (07:16→08:00)
[2023-02-01] MEDS: aspirin 81mg tab.chew PO SCH (07:48)
[2023-02-01] MEDS: ascorbic acid 500mg tablet PO SCH ×2 (07:48→17:43)
[2023-02-01] MEDS ORDERED: lactulose 20gm/30ml cup PO ONE (08:05)
[2023-02-01] MEDS ORDERED: magnesium citrate 296ml oral solution PO ONE (08:05)
[2023-02-01 08:28] LABS: ACT @ 1.70 U 304 SEC (193-297); ACT @ 2.84 U 440 SEC (260-420); BASELINE ACT 133 SEC (101-148); PATIENT WEIGHT 87.0k KG
[2023-02-01 12:18] LABS: ABG PO2 49.4 mmHg (75.0-100.0)
[2023-02-01] MEDS: JUVEN Smoothie Arginine/Glut./Ca2+Bmb (Juven 19.3pkt) 240ml cup PO SCH ×2 (12:30→17:43)
--- NOTE | 2023-02-01 18:07 | NUR ---
Problems reprioritized. Patient report given, questions answered & plan of care reviewed with Maddie. Addendum: 02/01/23 at 1808 by Aguila West RN Amended: Links added.
[2023-02-01] MEDS: atorvastatin 10mg tablet PO SCH (20:20)
[2023-02-01] MEDS: HYDROcodone/acetaminophen 10/325mg tab PO PRN (20:22)
[2023-02-01] MEDS: insulin glargine (Lantus) pen - multi-dose SQ SCH (21:00)
[2023-02-02 02:00] VITALS: BP 130/81; PULSE 83; RESP 20; TEMP 98.4; O2SAT 94
--- NOTE | 2023-02-02 06:44 | NUR ---
Problems reprioritized. Patient report given, questions answered & plan of care reviewed with Malcolm
--- NOTE | 2023-02-02 06:48 | NUR ---
Patient in room PCU 3010. I have received report from Alexandra ACOSTA and had the opportunity to ask questions and assume patient care.
[2023-02-02 07:00] VITALS: BP 130/73; PULSE 85; RESP 18; TEMP 97.6; O2SAT 95
[2023-02-02 08:00] VITALS: RESP 18; O2SAT 95
[2023-02-02] MEDS: metoprolol succinate 25mg (24-HOUR) SR. Tablet PO SCH (08:43)
[2023-02-02] MEDS: potassium Cl 20 mEq SR tablet PO SCH (08:43)
[2023-02-02] MEDS: sennosides/docusate sodium tablet PO SCH (08:43)
[2023-02-02] MEDS: ferrous sulfate 325mg tablet PO SCH (08:43)
[2023-02-02] MEDS: ascorbic acid 500mg tablet PO SCH (08:43)
[2023-02-02] MEDS: aspirin 81mg tab.chew PO SCH (08:43)
[2023-02-02] MEDS: zinc sulfate 220mg capsule PO SCH (08:44)
[2023-02-02] MEDS: multivitamins, therapeutics tablet PO SCH (08:44)
[2023-02-02] MEDS: furosemide 20MG tablet PO SCH (08:44)
[2023-02-02] MEDS: folic acid 1mg tablet PO SCH (08:44)
[2023-02-02] MEDS: pantoprazole 40mg Tablet.DR PO SCH (08:49)
[2023-02-02] MEDS ORDERED: HYDR-3972 PO (08:58)
[2023-02-02] MEDS ORDERED: METO-395 PO (08:58)
[2023-02-02 09:10] LABS: BASOPHILS % (AUTO) 0.2 % (0-1); EOSINOPHILS # (AUTO) 0.6 X10'3 (0-0.9); EOSINOPHILS % (AUTO) 5.7 % (0-6); LYMPHOCYTES # (AUTO) 2.3 X10'3 (1.1-4.8); LYMPHOCYTES % (AUTO) 23.2 % (21-51); MONOCYTES # (AUTO) 1.1 X10'3 (0-0.9); MONOCYTES % (AUTO) 10.9 % (2-12); NEUTROPHILS # (AUTO) 5.9 X10'3 (1.8-7.7)
[2023-02-02 09:22] LABS: ALBUMIN 3.1 G/DL (3.4-5.0); ANION GAP 18 (8-16); CALCIUM 9.2 MG/DL (8.5-10.1); CHLORIDE 106 MMOL/L (99-107); CREATININE 0.91 MG/DL (0.60-1.10); GLUCOSE 98 MG/DL (70-104); HEMATOCRIT 34.3 % (42.0-52.0); HEMOGLOBIN 11.8 g/dl (14.0-17.9); MEAN CORPUSCULAR HEMOGLOBIN 35.2 PG (27.0-31.0); MEAN CORPUSCULAR HGB CONC 34.5 g/dL (33.0-36.5); POTASSIUM 4.6 MMOL/L (3.5-5.1); RED BLOOD COUNT 3.37 X10'6 (4.70-6.10); SODIUM 143 MMOL/L (135-145); eCRCL 82 ML/MIN; eGFR 83 ML/MIN
[2023-02-02 09:24] LABS: WHITE BLOOD COUNT 9.8 X10'3 (4.5-11.0)
[2023-02-02 09:25] LABS: PLATELET COUNT 138 X10'3 (140-440)
[2023-02-02 09:26] LABS: MEAN PLATELET VOLUME 10.3 FL (7.4-10.4)
[2023-02-02 09:31] LABS: BLOOD UREA NITROGEN 22 MG/DL (7-18); BUN/CREATININE RATIO 24.2 (10.0-20.0)
[2023-02-02 11:00] VITALS: BP 115/77; PULSE 84; RESP 23; TEMP 98.2; O2SAT 94
[2023-02-02] MEDS: JUVEN Smoothie Arginine/Glut./Ca2+Bmb (Juven 19.3pkt) 240ml cup PO SCH (13:25)
--- NOTE | 2023-02-02 15:39 | NUR ---
Pt was DC'd as per 's orders. Pt unhooked from all IV and tele. Education provided to pt and family, all questions answered. Pt will follow up with their PCP and cardiology. Pt will pick up man their meds at their pharmacy. Pt gathered all belongings and took with them. I wheeled pt down to lobby in wheelchair and they left in a private vehicle destined for home.
== END 2023-02-02 15:19 | disposition home or self-care (01) | DRG 235 ==
LOC: PAS IN 11:04 → CICU 2S 17:54 → PCU 3S 01-30 22:45
PROVIDERS: ADMIT Thoracic Surgery (Cardiothoracic Vascular Surgery); ATTEND Thoracic Surgery (Cardiothoracic Vascular Surgery)
PROC: 021109W Bypass Coronary Artery, Two Arteries from Aorta with Autologous Venous Tissue, Open Approach (ICD-10-PCS; 2023-01-28)
PROC: 06BQ4ZZ Excision of Left Saphenous Vein, Percutaneous Endoscopic Approach (ICD-10-PCS; 2023-01-28)
PROC: 5A1221Z Performance of Cardiac Output, Continuous (ICD-10-PCS; 2023-01-28)
PROC: B24BZZ4 Ultrasonography of Heart with Aorta, Transesophageal (ICD-10-PCS; 2023-01-28)
PROC: 02100Z9 Bypass Coronary Artery, One Artery from Left Internal Mammary, Open Approach (ICD-10-PCS; principal; 2023-01-28 14:12)
DX: I25.10 Atherosclerotic heart disease of native coronary artery without angina pectoris (principal); R57.1 Hypovolemic shock; E87.0 Hyperosmolality and hypernatremia; I25.3 Aneurysm of heart; E87.20 Acidosis, unspecified; I25.5 Ischemic cardiomyopathy; D69.59 Other secondary thrombocytopenia; E78.5 Hyperlipidemia, unspecified; F41.9 Anxiety disorder, unspecified; E86.1 Hypovolemia; I11.0 Hypertensive heart disease with heart failure; I48.91 Unspecified atrial fibrillation; I50.9 Heart failure, unspecified; Z82.49 Family history of ischemic heart disease and other diseases of the circulatory system; Z79.899 Other long term (current) drug therapy; I25.2 Old myocardial infarction
CPT/HCPCS: 93306; 93308; Z7506; Z7508; 36415; 36600; 71045; 71046; 80048; 80053; 81003; 82150; 82330; 82435; 82803; 82810; 82947; 82948; 83036; 83605; 83735; 84100; 84132; 84295; 85008; 85018; 85025; 85347; 85610; 85730; 86885; 86900; 86901; 86920; 87081; 93005; 93880; 93970; 94002; 94003; 94668; 94760; 97116; 97161; 97530; A4333; A4615; A4618; A6222; A6258; A6449; A7000; A7048; C1751; G0378; J0171; J0690; J1250; J1644; J1815; J2060; J2150; J2250; J2270; J2704; J2720; J2930; J3370; J3475; J3480; J3490; J7030; J7040; J7050; J7070; J7120; P9045; P9047

== ENCOUNTER 2024-01-27 08:18 | Day surgery (SDC) | payer BC, MEDICARE ==
[2024-01-21 15:04] LABS: BASOPHILS % (AUTO) 0.4 % (0-1); EOSINOPHILS # (AUTO) 0.2 X10'3 (0-0.9); LYMPHOCYTES # (AUTO) 1.5 X10'3 (1.1-4.8); LYMPHOCYTES % (AUTO) 18.9 % (21-51); MEAN CORPUSCULAR HEMOGLOBIN 35.1 PG (27.0-31.0); MEAN CORPUSCULAR HGB CONC 34.1 g/dL (33.0-36.5); MEAN CORPUSCULAR VOLUME 103.2 FL (78-98); MEAN PLATELET VOLUME 9.6 FL (7.4-10.4); MONOCYTES # (AUTO) 0.6 X10'3 (0-0.9); MONOCYTES % (AUTO) 7.4 % (2-12); NEUTROPHILS # (AUTO) 5.7 X10'3 (1.8-7.7); NEUTROPHILS % (AUTO) 70.3 % (42-75); PRE OP HEMATOCRIT 50.2 % (42.0-52.0); PRE OP HEMOGLOBIN 17.1 g/dL (14.0-17.9); PRE OP PLATELET COUNT 125 X10'3 (140-440); PRE OP WHITE BLOOD COUNT 8.1 10'3 (4.8-10.8); RED BLOOD COUNT 4.86 X10'6 (4.70-6.10); RED CELL DISTRIBUTION WIDTH 13.5 % (11.5-14.5)
[2024-01-27] VITALS (9 sets, daily range): BP systolic 118–165; BP diastolic 81–102; PULSE 74–97; RESP 14–26; TEMP 97.9; O2SAT 93–98
[~2024-01-27] VITALS: Ht 172.7 cm; Wt 77.1 kg
[2024-01-27] MEDS: cefazolin 2gm/D5W 100mL 100 ML IV ONE (05:30)
[~2024-01-27 08:18] MED LIST changes: -BISO5TAB29 PO; +BUPIVAcaine/PF 2.5mg/ml (0.25%) 10ml vial ONE; +CARV6.252 PO; -Insulin Reg/NS 100units/100mL 100 ML IV SCH; +LIDOcaine 1% 30ml preserv. free vial ONE; -LIDOcaine 2% (20 mg/ml) 5ml cardiac syringe ONE; -LORazepam 2 mg/ml vial IV ONE; -MAGNESIUM SULFATE 4 MEQ/ML (5gm/10ml) injection ONE; -NORepinephrine 1 mg/ml inj IV ONE; -albumin (human) 25% 100 ML IV solution IV ONE; -albuterol 2.5 MG/3 ML nebule NEB PRN; -aminocaproic acid 250 MG/1 ML inj. ONE; -calcium chloride 100 MG/1 ML inj IV ONE; -cefazolin 2gm/D5W 100mL 100 ML IV ONE; -dextrose 50%-water 50ml dispensing syringe IV PRN; -famotidine 20mg tablet PO ONE; -heparin 1,000 units/ml 10ml inj ONE; -heparin 10,000 units/1 ML INJ ONE; -mannitol 12.5gm/50mL VIAL IV ONE; -methylPREDNISolone sod succ 1000mg vial ONE; -mupirocin 2% nasal ointment 1gm UD NS ONE; -ringers solution, lacted 1,000 ML IV SCH; -sodium bicarbonate (8.4%) 1 mEq/ml syringe ONE; -vancomycin 1,500 MG in NS 300ml IV soln IV ONE
[2024-01-27] MEDS: famotidine 20mg tablet PO ONE (08:48)
[2024-01-27] MEDS: ringers solution, lacted 1,000 ML IV SCH ×2 (08:49→15:57)
[2024-01-27 09:44] LABS: ALANINE AMINOTRANSFERASE 41 U/L (12-78); ALKALINE PHOSPHATASE 70 IU/L (46-116); ANION GAP 12 (8-16); ASPARTATE AMINO TRANSFERASE 34 U/L (10-37); BILIRUBIN,TOTAL 1.7 MG/DL (0.1-1.0); BLOOD UREA NITROGEN 24 MG/DL (7-18); BUN/CREATININE RATIO 31.6 (10.0-20.0); CALCIUM 9.2 MG/DL (8.5-10.1); CHLORIDE 104 MMOL/L (99-107); CREATININE 0.76 MG/DL (0.60-1.10); GLUCOSE 104 MG/DL (70-104); POTASSIUM 4.3 MMOL/L (3.5-5.1); SODIUM 137 MMOL/L (135-145); TOTAL CARBON DIOXIDE 21.3 MMOL/L (24-32); eCRCL 91 ML/MIN; eGFR > 90 ML/MIN
[2024-01-27] MEDS ORDERED: morphine 4 MG/ML inj SYRINge IV PRN (11:00)
[2024-01-27] MEDS ORDERED: ondansetron/PF 4mg/2ml inj IV PRN (11:00)
[2024-01-27] MEDS ORDERED: morphine 2 MG/ML inj. syringe IV PRN (11:00)
[2024-01-27] MEDS ORDERED: hydrALAZINE 20mg/ml inj. IV PRN (11:00)
[2024-01-27] MEDS ORDERED: labetalol 20mg/4ml (5mg/ml) syringe IV PRN (11:00)
[2024-01-27] MEDS ORDERED: fentaNYL/PF 50MCG/1 ML 2ML syringe IV PRN ×2 (11:00)
[2024-01-27] MEDS: LIDOcaine 1% 30ml preserv. free vial IJ ONE (11:50)
[2024-01-27] MEDS ORDERED: sevoflurane 250ml liquid IH ONE (11:53)
[2024-01-27] MEDS ORDERED: fentaNYL/PF 50MCG/1 ML 2ML syringe ONE (12:10)
[2024-01-27] MEDS ORDERED: midazolam 1 mg/ML 2ml injection ONE (12:10)
[2024-01-27] MEDS ORDERED: rocuronium 10mg/ml inj IV ONE (12:27)
[2024-01-27] MEDS ORDERED: LIDOcaine 2% (20mg/ml) 5ml vial ONE (12:27)
[2024-01-27] MEDS ORDERED: dexamethasone sod phosphate 4mg/ml inj. ONE (12:27)
[2024-01-27] MEDS ORDERED: propofol inj 20 ML IV ONE (12:27)
[2024-01-27] MEDS ORDERED: glycopyrrolate 0.2mg/ml inj ONE (12:28)
[2024-01-27] MEDS ORDERED: ondansetron/PF 4mg/2ml inj ONE (12:28)
[2024-01-27] MEDS ORDERED: oxyCODONE/APAP 5-325mg tablet PO PRN (14:15)
== END 2024-01-27 18:20 | disposition home or self-care (01) ==
LOC: PRE-OP 08:18
PROVIDERS: ATTEND Surgery
DX: K40.20 Bilateral inguinal hernia, without obstruction or gangrene, not specified as recurrent (principal); K42.9 Umbilical hernia without obstruction or gangrene; I45.2 Bifascicular block; I11.0 Hypertensive heart disease with heart failure; I50.9 Heart failure, unspecified; I25.10 Atherosclerotic heart disease of native coronary artery without angina pectoris; E11.9 Type 2 diabetes mellitus without complications; I73.9 Peripheral vascular disease, unspecified; I25.2 Old myocardial infarction; Z79.82 Long term (current) use of aspirin; Z79.899 Other long term (current) drug therapy; Z90.89 Acquired absence of other organs; Z95.1 Presence of aortocoronary bypass graft; Z82.49 Family history of ischemic heart disease and other diseases of the circulatory system
CPT/HCPCS: 36415; 49591; 49650; 80053; 85025; 93005; A4215; A4314; A4618; C1781; J0131; J0690; J1100; J2001; J2250; J2371; J2405; J2704; J2710; J3010; J3490; J7030; J7070; J7120; Z7506; Z7508; Z7512